=== PATIENT | male | born 1940 | race Caucasian/White ===

== ENCOUNTER 2022-08-03 11:38 | Day surgery (SDC) | payer BC, MEDICARE ==
[2022-08-03] VITALS (11 sets, daily range): BP systolic 141–206; BP diastolic 78–106
[~2022-08-03] VITALS: Ht 175.3 cm; Wt 97.4 kg
[2022-08-03] MEDS ORDERED: CLOP75TA33 PO (12:52)
[2022-08-03] MEDS ORDERED: ATOR40TA71 PO (12:52)
[2022-08-03] MEDS ORDERED: ASPI-611 PO (12:52)
--- NOTE | 2022-08-03 13:00 | NUR ---
notified of elevated blood pressure. New orders received. Addendum: 08/03/22 at 2032 by Giancarlo Boss RN Amended: Links added.
[2022-08-03] MEDS ORDERED: diphenhydrAMINE 25mg capsule PO ONE (13:10)
[2022-08-03] MEDS ORDERED: LORazepam 0.5 MG tablet PO ONE (13:10)
[2022-08-03] MEDS ORDERED: hydrALAZINE 20mg/ml inj. IV STA (13:19)
[2022-08-03] MEDS ORDERED: normal saline 1,000 ML IV SCH (13:20)
--- NOTE | 2022-08-03 13:32 | NUR ---
Meds given as ordered for elevated bp. Addendum: 08/03/22 at 3 by Giancarlo Boss RN Amended: Links added.
[2022-08-03] MEDS ORDERED: iohexol 350MG/ML 100ml bottle IV ONE ×2 (14:19→14:48)
[2022-08-03] MEDS ORDERED: nitroGLYCERIN-Tridil 50MG/D5W 250 ML IV ONE (14:19)
[2022-08-03] MEDS ORDERED: fentaNYL/PF 50MCG/1 ML 2ML syringe ONE (14:19)
[2022-08-03] MEDS ORDERED: verapamil 2.5 mg/ml inj IV ONE (14:19)
[2022-08-03] MEDS ORDERED: LIDOcaine 1% 30ml preserv. free vial ONE (14:19)
[2022-08-03] MEDS ORDERED: midazolam 1 mg/ML 2ml injection ONE (14:19)
[2022-08-03] MEDS ORDERED: heparin 1,000unit/ml 10ml vial 10 ML ONE (14:19)
[2022-08-03] MEDS ORDERED: hydrALAZINE 20mg/ml inj. IV ONE (14:40)
[2022-08-03] MEDS ORDERED: HYDROcodone/acetaminophen 10/325mg tab PO PRN (16:05)
[2022-08-03] MEDS ORDERED: ondansetron/PF 4mg/2ml inj IV PRN (16:05)
[2022-08-03] MEDS ORDERED: OXAZEpam 15mg capsule PO PRN (16:05)
[2022-08-03] MEDS ORDERED: HYDROcodone/acetaminophen 5mg/325mg tablet PO PRN (16:05)
[2022-08-03] MEDS ORDERED: nitroGLYCERIN 0.4mg SUBLingual tab SL PRN (16:05)
== END 2022-08-03 18:45 | disposition home or self-care (01) ==
LOC: SSTAY O 11:38
PROVIDERS: ATTEND Student in an Organized Health Care Education/Training Program
DX: I25.110 Atherosclerotic heart disease of native coronary artery with unstable angina pectoris (principal); I12.9 Hypertensive chronic kidney disease with stage 1 through stage 4 chronic kidney disease, or unspecified chronic kidney disease; N18.9 Chronic kidney disease, unspecified; I25.2 Old myocardial infarction; I25.10 Atherosclerotic heart disease of native coronary artery without angina pectoris; E78.5 Hyperlipidemia, unspecified; Z79.899 Other long term (current) drug therapy; Z98.890 Other specified postprocedural states; Z88.6 Allergy status to analgesic agent; Z88.7 Allergy status to serum and vaccine; Z95.5 Presence of coronary angioplasty implant and graft
CPT/HCPCS: 93005; 93458; 93571; 99152; 99153; A6258; C1751; C1769; C1894; J0360; J1644; J2250; J3010; J3490; J7030; Q0163; Q9967; A4620; A6402